=== PATIENT | female | born 1980 | race Caucasian/White ===

== ENCOUNTER 2018-04-25 22:52 | Emergency (ER) | payer SELFPAY ==
[~2018-04-25] VITALS: Ht 165.1 cm; Wt 103.4 kg
[2018-04-25 22:57] VITALS: Ht 165.1 cm; Wt 103.4 kg
[2018-04-26 00:43] VITALS: BP 157/101
== END 2018-04-26 00:43 | disposition home or self-care (01) ==
LOC: ED 22:52
DX: S92.002A Unspecified fracture of left calcaneus, initial encounter for closed fracture (principal); X58.XXXA Exposure to other specified factors, initial encounter; Y93.89 Activity, other specified; Y92.89 Other specified places as the place of occurrence of the external cause; Y99.8 Other external cause status; I10 Essential (primary) hypertension; J45.909 Unspecified asthma, uncomplicated; E66.9 Obesity, unspecified
CPT/HCPCS: J2590

== ENCOUNTER 2018-07-19 22:33 | Emergency (ER) | payer SELFPAY ==
[~2018-07-19] VITALS: Ht 165.1 cm; Wt 100.9 kg
[2018-07-19 22:37] VITALS: BP 150/99; Ht 165.1 cm; Wt 100.9 kg
== END 2018-07-20 00:31 | disposition home or self-care (01) ==
LOC: ED 22:33
DX: M17.12 Unilateral primary osteoarthritis, left knee (principal)
CPT/HCPCS: J1885

== ENCOUNTER 2018-10-15 15:57 | Emergency (ER) | payer SELFPAY ==
[~2018-10-15] VITALS: Ht 165.1 cm; Wt 101.2 kg
[2018-10-15 16:10] VITALS: Ht 165.1 cm; Wt 101.2 kg
[2018-10-15 18:30] VITALS: BP 143/83
== END 2018-10-15 18:30 | disposition home or self-care (01) ==
LOC: ED 15:57
DX: M25.531 Pain in right wrist (principal); R03.0 Elevated blood-pressure reading, without diagnosis of hypertension; J45.909 Unspecified asthma, uncomplicated; I10 Essential (primary) hypertension; Z98.890 Other specified postprocedural states